=== PATIENT | male | born 1985 | race Native Hawaiian/Other Pacific Islander ===

== ENCOUNTER 2023-10-30 19:11 | Emergency (ER) | payer BC ==
[2023-10-30 19:31] VITALS: TEMP 98.9
[2023-10-30] MEDS ORDERED: Rocephin 1000 MG INJ ONE (19:56)
[2023-10-30] MEDS ORDERED: DELTASONE 20 MG ONE (19:56)
[2023-10-30] MEDS ORDERED: XYLOCAINE 1% HCL 20 ML MDV ONE (19:56)
--- NOTE | 2023-10-30 19:58 | ERPHSYRPT ---
- History of Present Illness Time Seen by Provider: 10/30/23 19:30 Source: patient Exam Limitations: no limitations Patient Subjective Stated Complaint: Wheezing, chest pain, and cough Triage Nursing Assessment: Pt brought self to ED with c/o of wheezing, shortness of breath, dry cough. Pt states when he coughs he has 6/10 chest pain. States that he has been cleaning out an old basement since yesterday at 1600. Hypertensive, skin w/n/d, lung sounds clear, gait steady, dry, hoarse cough. Pt doesn't appear to be in any distress at this time. Physician History: 38-year-old male history of asthma presents to emergency department for evaluation of cough sinus pain wheezing that started yesterday. Patient reports he has been Cleaning an area with thick dust mold prior to onset of symptoms. Patient believes this may have triggered his symptoms. Patient has chest pain only when he coughs. Patient has self observed wheezing. No respiratory distress. No nausea vomiting or diaphoresis. Symptoms are mild to moderate in intensity. No specific worsening improving factors. Patient otherwise feels well. He voices no other complaints or concerns at this time. Portions of this note were created with voice recognition technology. There may be grammatical, spelling, punctuation or sound alike errors Timing/Duration: yesterday Severity: moderate Modifying Factors: Improves With: nothing Associated Symptoms: denies symptoms Allergies/Adverse Reactions: No Known Drug Allergies Allergy (Verified 10/30/23 19:32) Home Medications: Albuterol 2.5 mg/3 ml Neb [Proventil 2.5 mg/3 ml Neb] 2.5 mg IH DAILY PRN PRN 10/30/23 [History] Fluticasone/Umeclidin/Vilanter [Trelegy Ellipta 100-62.5-25] 1 each IH DAILY 10/30/23 [History] Montelukast Sodium 10 mg [Singulair 10 MG] 10 mg PO DAILY 10/30/23 [History] Propranolol HCl 10 mg PO DAILY 10/30/23 [History] Hx Tetanus, Diphtheria Vaccination/Date Given: Yes Hx Influenza Vaccination/Date Given: No Hx Pneumococcal Vaccination/Date Given: No Travel Risk - International Travel Have you traveled outside of the country in past 3 weeks: No - Emerging Infectious Disease Are you exhibiting symptoms associated with any current EIDs: Yes Symptoms: Cough: New Onset, Shortness of Breath - Review of Systems Constitutional: No Symptoms, No Fever, No Chills Eyes: No Symptoms Ears, Nose, & Throat: No Symptoms Respiratory: No Symptoms, No Cough, No Dyspnea Cardiac: No Symptoms, No Chest Pain, No Edema, No Syncope Abdominal/Gastrointestinal: No Symptoms, No Abdominal Pain, No Nausea, No Vomiting, No Diarrhea Genitourinary Symptoms: No Symptoms, No Dysuria Musculoskeletal: No Symptoms, No Back Pain, No Neck Pain Skin: No Symptoms, No Rash Neurological: No Symptoms, No Dizziness, No Focal Weakness, No Sensory Changes Psychological: No Symptoms Endocrine: No Symptoms Hematologic/Lymphatic: No Symptoms Immunological/Allergic: No Symptoms All Other Systems: Reviewed and Negative - Past Medical History ENT History: No Pertinent History Cardiac History: High Cholesterol, Hypertension Respiratory History: Asthma Endocrine Medical History: No Pertinent History Musculoskeletal History: Arthritis GI Medical History: Other History: No Pertinent History Psycho-Social History: Anxiety Male Reproductive Disorders: No Pertinent History - Past Surgical History Past Surgical History: Yes Gastrointestinal: Cholecystectomy Other Surgical History: HYDROCELE AND CYST REMOVAL - Social History Smoking Status: Former smoker Exposure to second hand smoke: No Drug Use: none - Social Determinants of Health Will the patient participate in the screening: Yes Do you worry about a steady place to live?: No Do you have any problems with any of the following?: No known problems In the past 12 months,have you had to go without utilities?: No Transportation Issues: No Has anyone in your support network made you feel unsafe?: No Have you or anyone in your house had to go without enough: No - Nursing Vital Signs Nursing Vital Signs: Initial Vital Signs Temperature 98.9 F 10/30/23 19:16 O2 Sat by Pulse Oximetry 96 10/30/23 19:16 Pain Scale Pain Intensity 0 - Physical Exam General Appearance: no apparent distress, alert Eye Exam: PERRL/EOMI, eyes nml inspection Ears, Nose, Throat Exam: normal ENT inspection, TMs normal, pharynx normal, moist mucous membranes, other (Frontal and maxillary sinus tenderness) Neck Exam: normal inspection, non-tender, supple, full range of motion Respiratory Exam: normal breath sounds, lungs clear, airway intact, No respiratory distress Cardiovascular Exam: regular rate/rhythm, normal heart sounds, normal peripheral pulses Gastrointestinal/Abdomen Exam: soft, normal bowel sounds, No tenderness, No mass Back Exam: normal inspection, normal range of motion, No CVA tenderness, No vertebral tenderness Extremity Exam: normal inspection, normal range of motion, pelvis stable Neurologic Exam: alert, oriented x 3, cooperative, normal mood/affect, nml cerebellar function, nml station & gait, sensation nml, No motor deficits Skin Exam: normal color, warm, dry, No rash Lymphatic Exam: No adenopathy SpO2 Interpretation: normal SpO2: 96 O2 Delivery: Room Air - Course Nursing assessment & vital signs reviewed: Yes EKG Interpreted by Me: RATE (82), Sinus Rhythm, NORMAL AXIS, NORMAL INTERVALS (NO acute findings) Ordered Tests: Active Orders 24 hr Category Date Time Status Sales Management Intern STAT Care 10/30/23 19:48 Active EKG-ER Only STAT Care 10/30/23 19:55 Active Pulse Oximetry (ED) STAT Care 10/30/23 19:48 Active CHEST 1 VIEW (PORTABLE) Stat Exams 10/30/23 19:48 Taken Respiratory Therapy Assessment DAILY RT 10/30/23 20:19 Active Medication Summary Discontinued Medications Generic Name Dose Route Start Last Admin Trade Name Freq PRN Reason Stop Dose Admin Albuterol/Ipratropium 3 ml 10/30/23 19:48 10/30/23 20:16 Ipratropium/Albuterol Sulfate 3 Ml Ampul.Neb IH 10/30/23 19:49 3 ml STAT ONE Administration Albuterol/Ipratropium Confirm 10/30/23 20:14 Ipratropium/Albuterol Sulfate 3 Ml Ampul.Neb Administered 10/30/23 20:15 Dose 3 ml IH .STK-MED ONE Ceftriaxone Sodium 1,000 mg 10/30/23 19:50 10/30/23 20:00 Ceftriaxone Sodium 1000 Mg Inj Vial IM 10/30/23 19:51 1,000 mg STAT ONE Administration Ceftriaxone Sodium Confirm 10/30/23 19:56 Ceftriaxone Sodium 1000 Mg Inj Vial Administered 10/30/23 19:57 Dose 1,000 mg .ROUTE .STK-MED ONE Methylprednisolone Sodium 0 mg 10/30/23 19:48 10/30/23 20:35 Succinate 125 mg/ Sterile IV 10/30/23 19:49 Not Given Water 2 ml STAT ONE Lidocaine HCl Confirm 10/30/23 19:56 Lidocaine Hcl 1% 20 Ml Mdv 20 Ml Ml Administered 10/30/23 19:57 Dose 3 ml .ROUTE .STK-MED ONE Prednisone 60 mg 10/30/23 19:50 10/30/23 19:59 Prednisone 20 Mg Tablet PO 10/30/23 19:51 60 mg STAT ONE Administration Prednisone Confirm 10/30/23 19:56 Prednisone 20 Mg Tablet Administered 10/30/23 19:57 Dose 60 mg .ROUTE .STK-MED ONE Lab/Rad Data: Laboratory Results 10/30/23 Range/Units 19:55 Influenza Type A Ag NEGATIVE (NEGATIVE) Influenza Type B Ag NEGATIVE (NEGATIVE) RSV (PCR) NEGATIVE (NEGATIVE) SARS-CoV-2 (PCR) NEGATIVE (NEGATIVE) - Progress Progress: improved Progress Note: 38-year-old male presents to our ED for evaluation of cough wheezing nasal congestion and sinus pressure. Physical exam faint expiratory wheezing at the bases. EKG is a sinus rhythm. Chest x-ray is clear. Flu RSV COVID-negative. Patient received a breathing treatment and prednisone in our ED. Patient observed symptom significantly improved. Wheezing resolved. Patient states he feels much better is ready for discharge. IM Rocephin administered. A prescription for Keflex, prednisone and albuterol inhaler provided. Patient advised to avoid triggers such as dust mold and mildew. Patient advised to wear a N95 mask if exposure is unavoidable. Patient understands instructions. He voices no other complaints or concerns at this time. Patient does not have a local physician as he is from [place] but he states he will be here for at least 2 weeks. Patient given a referral to Dr. Oscar. Patient voices no other complaints or concerns at this time. Portions of this note were created with voice recognition technology. There may be grammatical, spelling, punctuation or sound alike errors Complexity problem addressed is moderate acute complicated. No critical care time. Complex of data reviewed and analyzed is moderate. Test ordered test reviewed results analyzed and correlated clinically with history and physical exam. Risk of complication and or risk of morbidity/mortality patient management is moderate. A prescription for prednisone Keflex and albuterol inhaler forwarded to patient's pharmacy. Vital stable. Time spent to discharge patient approximately 20 minutes. Plan of care established for shared decision making. No social determinants of health present to impede follow-up. Portions of this note were created with voice recognition technology. There may be grammatical, spelling, punctuation or sound alike errors 10/30/23 21:36 Counseled pt/family regarding: lab results, diagnosis, need for follow-up, rad results - Departure Departure Disposition: Home Clinical Impression: Sinusitis, Asthma, Cough Condition: Stable Critical Care Time: No Referrals: DOCTOR,NO FAMILY [Primary Care Provider] - Follow up/PCP as directed MILLY OSCAR DO [ACTIVE STAFF] - Follow up/PCP as directed Additional Instructions: Discharge/Care Plan LEANDRO FARMER was seen on 10/30/23 in the Emergency Room. The patient was counseled regarding Diagnosis,Lab results, Imaging studies, need for follow up and when to return to the Emergency Room. Prescriptions given: Discharge Note I have spoken with the patient and/or caregivers. I have explained the patient's condition, diagnosis and treatment plan based on the information available to me at this time. I have answered the patient's and/or caregiver's questions and addressed any concerns. The patient and/or caregivers have as good understanding of the patient's diagnosis, condition and treatment plan as can be expected at this point. The vital signs have been stable. The patient's condition is stable and appropriate for discharge from the emergency department. The patient will pursue further outpatient evaluation with the primary care physician or other designated or consulting physician as outlined in the discharge instructions. The patient and/or caregivers are agreeable to this plan of care and follow-up instructions have been explained in detail. The patient and/or caregivers have received these instruction. The patient/and or caregivers are aware that any significant change in condition or worsening of symptoms should prompt an immediate return to this or the closest emergency department or call 911. Prescriptions: Prednisone 10 mg [Deltasone 10 mg] 40 mg PO DAILY 3 Days #12 tablet Cephalexin Mh 500 mg [Keflex 500 mg] 500 mg PO TID #21 cap Albuterol 8 gm Mdi Hfa [Ventolin Hfa MDI] 8 gm IH Q4H 7 Days #1 inhaler MDD 6
[2023-10-30] MEDS: DELTASONE 20 MG PO ONE (19:59)
[2023-10-30] MEDS: Rocephin 1000 MG INJ IM ONE (20:00)
[2023-10-30] MEDS ORDERED: DUONEB 0.5-3 MG/3 ml Neb IH ONE (20:14)
[2023-10-30] MEDS: DUONEB 0.5-3 MG/3 ml Neb IH ONE (20:16)
[2023-10-30] MEDS: solu-MEDROL 125 MG, Sterile H2O 10 ml 2 ML IV ONE (20:35)
[2023-10-30 20:37] LABS: INFLUENZA A NEGATIVE (NEGATIVE); INFLUENZA B NEGATIVE (NEGATIVE); RESPIRATORY SYNCTIAL VIRUS NEGATIVE (NEGATIVE); SARS-CoV-2 Xpert Express NEGATIVE (NEGATIVE)
[2023-10-30 21:11] VITALS: BP 138/85; PULSE 82; RESP 21
[2023-10-30 21:36] VITALS: O2SAT 96
--- NOTE | 2023-10-31 08:55 | XRAY ---
Indication: Cough. Comparison: None Portable apical lordotic chest demonstrates minimal left lung base subsegmental atelectasis/scarring. Remaining heart, lungs, and bony thorax normal.
== END 2023-10-30 21:45 | disposition home or self-care (01) ==
LOC: ED 19:11
DX: J32.9 Chronic sinusitis, unspecified (principal); J45.909 Unspecified asthma, uncomplicated; R05.1 Acute cough; E78.5 Hyperlipidemia, unspecified; I10 Essential (primary) hypertension; Z79.52 Long term (current) use of systemic steroids; Z79.899 Other long term (current) drug therapy
CPT/HCPCS: 0241U; 71045; 93005; 93041; 94640; 94760; 96372; 99284; J0696; A9270-GY